=== PATIENT | male | born 1985 | race Caucasian/White ===

== ENCOUNTER 2016-12-27 04:17 | Observation (INO) | payer SELFPAY ==
[2016-12-27 04:17] VITALS: O2SAT 99
[2016-12-27] MEDS ORDERED: MORPHINE SULFATE 8 MG/ML INJ ONE (04:29)
[2016-12-27] MEDS ORDERED: ONDANSETRON HCL 4 MG/2 ML VIAL ONE (04:29)
[2016-12-27 04:37] LABS: AUTOMATED NEUTROPHIL # 3.4 TH/MM3 (1.8-7.7); BASOPHIL % 0.6 % (0.0-2.0); EOSINOPHIL # 0.2 TH/MM3 (0-0.4); EOSINOPHIL % 3.3 % (0.0-4.0); HEMATOCRIT 40.6 % (39.0-51.0); HEMO FLAGS DIFF FINAL; LYMPH % 32.4 % (9.0-44.0); LYMPHOCYTE # 2.1 TH/MM3 (1.0-4.8); MEAN CELL VOLUME 86.7 FL (80.0-100.0); MEAN CORPUSCULAR HEMOGLOBIN 29.4 PG (27.0-34.0); MEAN CORPUSCULAR HGB CONC 33.9 % (32.0-36.0); MONO % 11.2 % (0.0-8.0); NEUT % 52.5 % (16.0-70.0); PLATELET COUNT 302 TH/MM3 (150-450); RED BLOOD COUNT 4.68 MIL/MM3 (4.50-5.90); RED CELL DISTRIBUTION WIDTH 13.6 % (11.6-17.2); WHITE BLOOD COUNT 6.5 TH/MM3 (4.0-11.0)
[2016-12-27 04:38] LABS: I-STAT POTASSIUM 3.9 MMOL/L (3.5-4.9)
[2016-12-27] MEDS ORDERED: DIPHTH/TETANUS/ACEL PERTUSSIS (BOOSTER) 0.5 ML VIAL/PFS IM ONE (04:38)
[2016-12-27] MEDS ORDERED: ceFAZolin 2 GM PREMIX 50 ML IV STA (04:39)
[2016-12-27 04:46] LABS: APTT (PATIENT) 29.4 SEC (24.3-30.1); PROTHROMBIN TIME - PATIENT 11.3 SEC (9.8-11.6)
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
[2016-12-27] MEDS ORDERED: IOHEXOL 350 MG/ML 10 ML VIAL (for RAD DIAG) IV ONE (05:00)
[2016-12-27] MEDS ORDERED: MORPHINE SULFATE 4 MG/ML INJ IV PUSH ONE (05:15)
[2016-12-27] MEDS ORDERED: ONDANSETRON HCL 4 MG/2 ML VIAL IV PUSH ONE (05:15)
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
[2016-12-27] MEDS ORDERED: LIDOCAINE 1%/EPINEPHrine 1:100,000 SOLN 20 ML VIAL ONE (06:13)
[2016-12-27] MEDS ORDERED: LIDOCAINE 1%/EPINEPHrine 1:100,000 SOLN 20 ML VIAL INFIL ONE (06:15)
[2016-12-27] MEDS ORDERED: ACETAMINOPHEN 325 MG TAB PO PRN (07:00)
[2016-12-27] MEDS ORDERED: SODIUM CHLORIDE 0.9% FLUSH 10 ML FLUSH IV FLUSH PRN (07:00)
[2016-12-27] MEDS ORDERED: ENALAPRILAT 1.25 MG/ML VIAL IV PRN (07:00)
[2016-12-27] MEDS ORDERED: KETOROLAC TROMETHAMINE 30 MG/ML (IVP) VIAL IVP PRN (07:00)
[2016-12-27] MEDS ORDERED: ONDANSETRON HCL 4 MG/2 ML VIAL IV PRN (07:00)
[2016-12-27] MEDS: METHOCARBAMOL 500 MG TAB PO SCH ×2 (07:15→15:11)
[2016-12-27 07:17] VITALS: RESP 20; O2SAT 99
[2016-12-27 07:19] VITALS: BP 130/76; PULSE 65; RESP 18; O2SAT 99
[2016-12-27] MEDS ORDERED: PANTOPRAZOLE SODIUM 40 MG VIAL IVP SCH (09:00)
[2016-12-27] MEDS ORDERED: DOCUSATE SODIUM 100 MG CAP PO SCH (09:00)
[2016-12-27] MEDS ORDERED: BACITRACIN TOP OINT 15 GM TUBE TOP SCH (09:00)
[2016-12-27 12:18] VITALS: BP 132/65; PULSE 77; RESP 16; O2SAT 97
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
[2016-12-27 15:36] VITALS: BP 124/72; PULSE 87; RESP 16; O2SAT 100
[2016-12-27 16:20] VITALS: BP 126/76; PULSE 61; RESP 19; TEMP 98.4; O2SAT 99
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
== END 2016-12-27 19:03 | disposition home or self-care (01) ==
LOC: NEPI 04:17 → NEDA 06:07 → EDBD 06:07 → NEDA 12:08 → NEPFCDU 16:09
PROVIDERS: ADMIT Surgery; ATTEND Surgery
DX: S61.412A Laceration without foreign body of left hand, initial encounter (principal); S60.512A Abrasion of left hand, initial encounter; S60.511A Abrasion of right hand, initial encounter; W55.32XA Struck by other hoof stock, initial encounter; V29.9XXA Motorcycle rider (driver) (passenger) injured in unspecified traffic accident, initial encounter; Z88.0 Allergy status to penicillin
CPT/HCPCS: 70450; 71010; 71260; 72125; 73502; 73560; 73610; 74177; 82435; 82565; 82947; 84132; 84295; 84520; 85025; 85610; 85730; 86850; 86900; 86901; 90471; 90715; 96374; 96375; 96376; 99291; G0378; G0390; G8987-GP; G8988-GP; J1885; J2270; J2405; Q9967